=== PATIENT | female | born 1995 | race American Indian/Alaskan Native ===

== ENCOUNTER 2018-01-25 13:22 | Outpatient (CLI) | payer OTHER | END 2018-01-25 14:41 | disposition home or self-care (01) | LOC: TRG 13:22 | PROVIDERS: ATTEND Obstetrics & Gynecology | DX: O47.03 False labor before 37 completed weeks of gestation, third trimester (principal); Z3A.34 34 weeks gestation of pregnancy ==

== ENCOUNTER 2018-02-09 22:31 | Observation (INO) | payer OTHER ==
[2018-02-09] MEDS ORDERED: LACTATED RINGERS 1,000 ML IV ONE (23:24)
[2018-02-09] MEDS ORDERED: STADOL ONE (23:45)
[2018-02-10] MEDS ORDERED: LACTATED RINGERS 1,000 ML IV SCH ×2 (01:00→02:00)
[2018-02-10] MEDS ORDERED: PITOCin/NS 20 UNIT/1000ML DRIP 20 UNITS/1,000 ML BAG IV SCH ×3 (01:00→04:00)
[2018-02-10 01:08] LABS: Hemoglobin 11.2 gm/dl (10.1-14.3); Mean Corpuscular HGB Conc 33 % (30-34); Mean Corpuscular Volume 76 fl (79-97); Platelet Count 186 K/mm3 (140-440); Red Cell Distribution Width 16.8 % (13.2-15.2)
[2018-02-10 01:20] LABS: Mean Corpuscular Hemoglobin 25 pg (28-32)
[2018-02-10] MEDS ORDERED: MINERAL OIL PO PRN (01:36)
[2018-02-10] MEDS ORDERED: XYLOCAINE 2% INFILTRATI ONE (01:36)
[2018-02-10] MEDS ORDERED: BRETHINE SUB-Q PRN (01:36)
[2018-02-10] MEDS ORDERED: BRETHINE IVP PRN (01:36)
[2018-02-10] MEDS ORDERED: ePHEDrine SULFATE IV PRN (01:36)
--- NOTE | 2018-02-10 01:45 | History and Physical Report ---
History of Present Illness Date of examination: 02/10/18 Date of admission: 02/09/18 23:36 Chief complaint: Rupture of membranes and contractions. History of present illness: Patient is a 22 year old , LMP 05/27/17, EDC 03/03/18 at 37 weeks gestation who complains of having contractions and fluid leakage since about 9 PM . She denies any bleeding. She reports good movement. Cervix: 3-4/90%/-2. tracing is CAT1. Past History Past Surgical History: no surgical history Family/Genetic History: none Social history: no significant social history - Obstetrical History Expected Date of Delivery: 03/03/18 Actual Gestation: 37 Week(s) 0 Day(s) : 1 Medications and Allergies Allergies Allergy/AdvReac Type Severity Reaction Status Date / Time No Known Allergies Allergy Unverified 01/25/18 14:26 Active Meds: Active Medications Ephedrine Sulfate (Ephedrine Sulfate) 10 mg IV Q2M PRN PRN Reason: Hypotension Lactated Ringer's (Lactated Ringers) 1,000 mls @ 125 mls/hr IV DIRECT ILEANA Oxytocin/Sodium Chloride (Pitocin/Ns 20 Unit/1000ml Drip) 20 units in 1,000 mls @ 0 mls/hr IV DIRECT ILEANA Lactated Ringer's (Lactated Ringers) 1,000 mls @ 125 mls/hr IV DIRECT ILEANA Oxytocin/Sodium Chloride (Pitocin/Ns 20 Unit/1000ml Drip) 20 units in 1,000 mls @ 125 mls/hr IV DIRECT ILEANA Oxytocin/Sodium Chloride (Pitocin/Ns 30 Unit/500ml) 30 units in 500 mls @ 1 mls /hr IV TITR ILEANA; Protocol Lidocaine (Xylocaine 2%) 20 ml INFILTRATI ONCE ONE Stop: 02/10/18 01:37 Mineral Oil (Mineral Oil) 30 ml PO QHS PRN PRN Reason: Constipation Terbutaline Sulfate (Brethine) 0.25 mg SUB-Q ONCE PRN PRN Reason: Hyperstimulation/Hypertonicity Terbutaline Sulfate (Brethine) 0.25 mg IVP ONCE PRN PRN Reason: Hyperstimulation/Hypertonicity - Vital Signs Vital signs: Vital Signs Temp Pulse Resp BP Pulse Ox 98.6 F 74 18 119/77 99 02/09/18 23:08 02/09/18 23:08 02/09/18 23:08 02/09/18 23:08 02/09/18 23:08 Temp Pulse Resp BP Pulse Ox 97.7 F 87 16 125/59 99 02/10/18 00:16 02/10/18 01:42 02/10/18 00:16 02/10/18 00:50 02/10/18 01:42 - Physical Exam Cardiovascular: Normal S1, Normal S2 Lungs: Positive: Clear to auscultation Vulva: both: normal Adnexa: both: normal Deep Tendon Reflex Grade: Normal +2 - Obstetrical FHR: category 1 Uterine Contraction Monitor Mode: External Cervical Dilatation: 3 Cervical Effacement Percentage: 90 station: -1 Uterine Contraction Pattern: Regular Uterine Contraction Intensity: Strong/Firm Results Result Diagrams: 02/10/18 00:10 Abnormal lab results 02/10/18 Range/Units 00:10 MCV 76 L (79-97) fl MCH 25 L (28-32) pg RDW 16.8 H (13.2-15.2) % All other labs normal. Assessment and Plan - Patient Problems (1) 37 weeks gestation of Current Visit: Yes Status: Acute (2) Active labor Current Visit: Yes Status: Acute Plan to address problem: Admit to labor floor. GBS negative. Routine labs. IV fluid. and toco monitoring. Anticipate . (3) Late care Current Visit: Yes Status: Acute (4) Beta thalassemia minor Current Visit: Yes Status: Acute (5) Anemia Current Visit: Yes Status: Acute Qualifiers: Anemia type: iron deficiency (6) Vitamin D deficiency Current Visit: Yes Status: Acute
[2018-02-10] MEDS ORDERED: PITOCin/NS 30 UNIT/500ML 30 UNITS/500 ML BAG IV SCH (02:00)
--- NOTE | 2018-02-10 02:04 | Event Note ---
Date: 02/10/18 Patient had increasing pain at 12 AM. Cervix: 4 cm/100/-1. tracing is CAT 1. Stadol given.
[2018-02-10] MEDS ORDERED: STADOL IV PRN (02:10)
[2018-02-10] MEDS ORDERED: PHENERGAN PO PRN (03:34)
[2018-02-10] MEDS ORDERED: BENADRYL PO PRN (03:34)
[2018-02-10] MEDS ORDERED: LANSINOH TP PRN (03:34)
[2018-02-10] MEDS ORDERED: TYLENOL PO PRN (03:34)
[2018-02-10] MEDS ORDERED: ZOFRAN IV PRN (03:34)
[2018-02-10] MEDS ORDERED: PHENERGAN PR PRN (03:34)
--- NOTE | 2018-02-10 03:43 | Procedure Note ---
OB Delivery Note - Delivery Date of Delivery: 02/10/18 Surgeon: AYSE MEDEL Estimated blood loss: 200cc - Vaginal Delivery position: OA Intrapartum events: none Delivery induction: none Delivery monitor: external FHT Route of delivery: Delivery placenta: spontaneous Delivery cord: 3 umbilical vessels Episiotomy: midline Delivery laceration: none Delivery repair: vicryl Anesthesia: local Delivery comments: Patient became fully dilated. she delivered a live male infant from an ILYA position with Apgars of 8 at 1 min and 9 at 5 mins at 3:05 AM. Bulb suction of the mouth and nose, cord clamped and cut, cord blood collected. The placenta was delivered spontaneously and it was complete with a 3-vessel cord. A midline episiotomy was given which was repaired with 2 and 3 vicryl. EBL was 200 cc. Infant's weight was 4 lbs 10 oz. The uterus was firm. Patient tolerated the procedure well. Peds were present.
[2018-02-10] MEDS ORDERED: SODIUM CHLORIDE FLUSH SYRINGE 10 ML IV NR (04:00)
[2018-02-10] MEDS: TUCKS PAD TP PRN ×2 (06:17→21:33)
[2018-02-10] MEDS: MOTRIN PO SCH ×5 (06:17→19:17)
[2018-02-10] MEDS ORDERED: DULCOLAX PR PRN (10:00)
[2018-02-10] MEDS: COLACE PO SCH ×2 (13:15→21:34)
[2018-02-10] MEDS: PRENATAL VITAMIN PO SCH (13:16)
[2018-02-10 15:28] LABS: Hematocrit 28.1 % (30.3-42.9); Hemoglobin 9.2 gm/dl (10.1-14.3)
[2018-02-10] MEDS: PERCOCET 5/325 PO PRN (21:34)
[2018-02-10] MEDS ORDERED: MILK OF MAGNESIA PO PRN (22:00)
[2018-02-11] MEDS: MOTRIN PO SCH ×4 (01:16→23:47)
[2018-02-11] MEDS: PERCOCET 5/325 PO PRN ×3 (05:11→23:56)
--- NOTE | 2018-02-11 10:47 | Progress Note ---
Assessment and Plan A: day 1. Anemia. P: Supplement with iron. Encouraged ambulation. Anticipate discharge tomorrow. Subjective - Subjective Date of service: 02/11/18 Principal diagnosis: day 1 S/P Interval history: day 1 S/P . Doing well. Bottlefeeding. Pt. reports small amount of lochia. Patient is voiding without difficulty, ambulating well, tolerating a regular diet without nausea or vomiting. Patient is considering using OCPs at 6 weeks for control. Patient denies chest pain, cough, shortness of breath, visual disturbance, abdominal pain, nausea or vomiting, leg pain, heavy vaginal bleeding, or symptoms of depression. Pt. reports mild headache today for which she just took pain medication. Patient reports: appetite normal, voiding normally, pain well controlled, flatus , ambulating normally [place]: doing well Objective - Vital Signs Latest vital signs: Vital Signs Temp Pulse Resp BP BP Pulse Ox 02/11/18 07:59 97.8 F 82 18 111/62 97 02/11/18 05:11 18 02/11/18 01:55 98.3 F 91 H 18 110/60 02/10/18 21:34 18 02/10/18 16:52 98.4 F 89 111/60 02/10/18 11:58 98.1 F 67 18 108/66 100 Intake and Output 02/10/18 02/11/18 02/11/18 23:59 07:59 15:59 Intake Total 1440 720 120 Balance 1440 720 120 Intake: Oral 1440 120 120 Intake, Free Water 600 Other: Total, Intake Amount 720 120 120 Voiding Method Toilet # Voids 2 Void 1 1 1 - Exam Breasts: Present: deferred Cardiovascular: Present: Regular rate, Normal S1, Normal S2 Lungs: Present: Clear to auscultation Abdomen: Present: normal appearance, soft, normal bowel sounds. Absent: distention, tenderness, guarding, rigidity Uterus: Present: normal, firm, fundal height below umbilicus. Absent: bogginess , tenderness Extremities: Present: normal. Absent: tenderness, edema - Labs Labs: Abnormal lab results 02/10/18 Range/Units 15:03 Hgb 9.2 L (10.1-14.3) gm/dl Hct 28.1 L (30.3-42.9) %
[2018-02-11] MEDS: COLACE PO SCH ×2 (12:00→21:08)
[2018-02-11] MEDS: PRENATAL VITAMIN PO SCH (12:00)
[2018-02-11] MEDS: FEOSOL PO SCH ×2 (12:00→21:08)
[2018-02-12] MEDS: MOTRIN PO SCH ×4 (05:22→18:00)
[2018-02-12] MEDS: PERCOCET 5/325 PO PRN ×2 (05:23→12:35)
[2018-02-12] MEDS: PRENATAL VITAMIN PO SCH (10:03)
[2018-02-12] MEDS: FEOSOL PO SCH (10:03)
[2018-02-12] MEDS: COLACE PO SCH (10:03)
--- NOTE | 2018-02-12 17:09 | Progress Note ---
Assessment and Plan A: day 2. Anemia. P: Discharge patient home today. The following Rx were called to [facility] pharmacy for patient: Motrin 800 mg, #30, 1 po every 8 hours prn pain, 0 RF; Ferrous Sulfate 325 mg, #60, 1 po BID, 1 RF. Discussed with patient discharge instructions and warning signs and use of medications. Advised pt. to avoid IC, avoid heavy housework and lifting. Advised pt. to follow up at [facility] in 4-6 weeks. Patient voiced understanding of all instructions. Subjective - Subjective Date of service: 02/12/18 Principal diagnosis: day 2 S/P Interval history: day 2 S/P . Pt. desires discharge today. Doing well. Bottlefeeding. Pt. reports small amount of lochia. Patient is voiding without difficulty, ambulating well, tolerating a regular diet without nausea or vomiting. Patient has decided she wants to use Nexplanon for contraception. Patient denies headache, chest pain, cough, shortness of breath, visual disturbance, abdominal pain, nausea or vomiting, leg pain, heavy vaginal bleeding, or symptoms of depression. Patient reports: appetite normal, voiding normally, pain well controlled, flatus , ambulating normally [place]: doing well Objective - Vital Signs Latest vital signs: Vital Signs Temp Pulse Resp BP Pulse Ox 02/12/18 08:29 98.5 F 81 18 123/76 97 02/12/18 06:16 18 02/12/18 05:23 18 02/12/18 05:22 18 02/12/18 00:00 98.6 F 82 18 110/66 02/11/18 23:56 18 02/11/18 23:47 18 Intake and Output 02/12/18 02/12/18 02/12/18 07:59 15:59 23:59 Intake Total 360 600 Balance 360 600 Intake: Oral 120 Intake, Free Water 360 480 Other: Total, Intake Amount 120 # Voids Void 2 1 - Exam Cardiovascular: Present: Regular rate, Normal S1, Normal S2 Lungs: Present: Clear to auscultation Abdomen: Present: normal appearance, soft, normal bowel sounds. Absent: distention, tenderness, guarding Uterus: Present: normal, firm, fundal height below umbilicus. Absent: bogginess , tenderness Extremities: Present: normal. Absent: tenderness, edema
--- NOTE | 2018-02-12 17:31 | Discharge Summary ---
Providers - Providers Date of Admission: 02/09/18 23:36 Date of discharge: 02/12/18 Attending physician: AYSE MEDEL MD None Primary care physician: AYSE MEDEL MD Hospitalization Reason for admission: active labor Delivery: Episiotomy: midline Other procedures: none complications: none Discharge diagnosis: IUP at term delivered [place] baby: male Pertinent studies: Labs Hospital course: Normal hospital course Condition at discharge: Good Disposition: DC-01 TO HOME OR SELFCARE - Discharge Diagnoses (1) Term delivered Status: Acute Plan - Provider Discharge Summary Activity: routine, no sex for 6 weeks, no heavy lifting 4 weeks, no strenuous exercise Diet: routine Instructions: routine Additional instructions: Call your doctor immediately for: * Fever > 100.5 * Heavy vaginal bleeding ( >1 pad per hour) * Severe persistent headache * Shortness of breath * Reddened, hot, painful area to leg or breast - Follow up plan Follow up: AYSE MEDEL MD [Primary Care Provider] - 6 Weeks Forms: [facility] Discharge Summary
[2018-02-12 18:09] VITALS: BP 126/74
== END 2018-02-12 18:20 | disposition home or self-care (01) ==
LOC: TRG 22:31 → LD 23:36 → TRG 23:36 → INTOOBSV 23:36 → OB 02-10 06:01
PROVIDERS: ADMIT Obstetrics & Gynecology; ATTEND Obstetrics & Gynecology
DX: O42.913 Preterm premature rupture of membranes, unspecified as to length of time between rupture and onset of labor, third trimester (principal); O62.9 Abnormality of forces of labor, unspecified; Z3A.37 37 weeks gestation of pregnancy
CPT/HCPCS: 36415; 59025; 85014; 85018; 85027; 86592; 86850; 86900; 86901; 88307; 96360; G0378; J0595; J2590; J7120; 96374

== ENCOUNTER 2020-01-12 20:27 | Emergency (ER) | payer OTHER ==
[2020-01-12 21:04] VITALS: BP 115/77
== END 2020-01-12 21:13 | disposition left against medical advice (07) ==
LOC: ED 20:27
DX: K13.79 Other lesions of oral mucosa (principal); H92.09 Otalgia, unspecified ear
CPT/HCPCS: 99282